=== PATIENT | female | born 2000 | race Hispanic/Latino ===

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

== ENCOUNTER 2022-08-13 00:02 | Emergency (ER) | payer MEDICAID ==
[~2022-08-13] VITALS: Ht 162.6 cm; Wt 71.2 kg
[2022-08-13 00:04] VITALS: BP 121/72
[2022-08-13] MEDS ORDERED: FLUC150T PO (01:08)
== END 2022-08-13 01:24 | disposition home or self-care (01) ==
LOC: EDH 00:02
DX: B37.31 Acute candidiasis of vulva and vagina (principal)

== ENCOUNTER 2023-09-10 14:44 | Emergency (ER) | payer MEDICAID, OTHER ==
[~2023-09-10] VITALS: Ht 162.6 cm; Wt 72.6 kg
[~2023-09-10 14:44] MED LIST: FLUC150T PO
[2023-09-10 15:02] VITALS: BP 114/68; PULSE 74; RESP 14; O2SAT 97
[2023-09-10 15:35] LABS: HEMATOCRIT 40.1 % (36-48); MEAN CORPUSCULAR HEMOGLOBIN 30.7 pg (27.0-33.0); MEAN CORPUSCULAR HGB CONC 35.4 g/dL (32.0-36.0); MEAN CORPUSCULAR VOLUME 86.8 fL (80-100); RED BLOOD CELL COUNT(AUTO) 4.62 MIL/uL (4.00-5.50); RED CELL DISTRIBUTION WIDTH 12.1 % (11.0-15.5); WHITE BLOOD COUNT (AUTO) 8.8 K/uL (4.8-10.8)
[2023-09-10 15:45] LABS: CREATININE 0.6 mg/dL (0.5-1.5); POTASSIUM 3.7 mmol/L (3.5-5.1)
== END 2023-09-10 19:23 | disposition left against medical advice (07) ==
LOC: EDH 14:44
DX: L02.415 Cutaneous abscess of right lower limb (principal); Z53.21 Procedure and treatment not carried out due to patient leaving prior to being seen by health care provider
CPT/HCPCS: 36415; 80048; 84703; 85027; 99281